=== PATIENT | female | born 1970 | race Caucasian/White ===

== ENCOUNTER 2022-04-16 10:15 | Emergency (ER) | payer BC, OTHER, SELFPAY ==
[2022-04-16 10:22] VITALS: BP 136/81; PULSE 69; RESP 20; TEMP 36.4; O2SAT 100
--- NOTE | 2022-04-16 10:34 | ED.FEMALEGU ---
HPI - Female Genitourinary General Chief complaint: Urogenital-Female Stated complaint: diahrrea achey cough Time Seen by Provider: 04/16/22 10:40 Source: patient and RN notes reviewed Mode of arrival: ambulatory Limitations: no limitations History of Present Illness HPI Narrative: 52-year-old female presents with concern for 1 week history of burning with urination, urinary incontinence, abdominal bloating, low backache, general achiness. Reports she developed diarrhea over the last 4 days with approximately 2 episodes of diarrhea per day without vomiting. She reports occasional cough. She denies fever. MD elicited complaint: UTI Related Data Home Medications Medication Instructions Recorded Confirmed Vitamin D 50,000 50,000 unit PO WEEKLY 11/27/19 04/16/22 escitalopram oxalate [Lexapro] 10 mg PO DAILY 11/27/19 04/16/22 levothyroxine 25 mcg PO DAILY 11/27/19 04/16/22 Allergies Allergy/AdvReac Type Severity Reaction Status Date / Time No Known Allergies Allergy Verified 04/16/22 10:39 Review of Systems Review of Systems: CONSTITUTIONAL: Denies malaise, chills, sweats, or fever. CARDIOVASCULAR: Denies chest pain, palpitations, or edema. RESPIRATORY: Reports occasional cough, occasional exertional dyspnea. GASTROINTESTINAL: Denies abdominal pain, nausea, vomiting. Reports abdominal bloating and diarrhea GENITOURINARY: Reports dysuria, frequency, urgency, suprapubic pressure, flank pain, dark-colored urine SKIN: Denies rash or itching. MUSCULOSKELETAL: Reports bilateral low back pain and myalgia. All systems reviewed & are unremarkable except as noted in HPI and below PMFSH Past Medical History Medical History (Updated 04/16/22 @ 10:51 by Suyapa Lizama NP) Arthritis Fibromyalgia No pertinent family history Surgical History Surgical History H/O section Hx of cholecystectomy Hx of hysterectomy Social History Social History Smoking status: Former smoker Comments At time of signature, agree with nursing past medical, surgical, social and family history. There is no relevant family history pertinent to the presenting complaint Exam Narrative: GENERAL: Nontoxic-appearing and in no acute distress. HEAD: Normocephalic. EYES: PERRLA, conjunctivae clear. NECK: Supple. No lymphadenopathy CHEST: Clear to auscultation. No respiratory distress. HEART: Regular rate and rhythm. ABDOMEN: Soft, mild lower abdomen tenderness upon, nondistended, normal active bowel sounds, no palpable or pulsatile masses, no guarding. Bilateral CVA tenderness SKIN: Warm, dry, no rash. NEURO: Alert and oriented x3. PSYCH: Normal mood and affect Course Course Emergency Course: Patient is aware of diagnosis, understands and agrees to treatment plan. Anticipatory guidance given. Patient agrees to follow-up as directed and is aware of reasons to seek care at the emergency department. Portions of this record may have been created with voice recognition software Level of Care: Express Care Visit Vital Signs Vital signs: Vital Signs Temperature 97.6 F 04/16/22 10:22 Pulse Rate 69 04/16/22 10:22 Respiratory Rate 20 04/16/22 10:22 Blood Pressure 136/81 04/16/22 10:22 Pulse Oximetry 100 04/16/22 10:22 Temperature 97.6 F 04/16/22 10:22 Pulse Rate 69 04/16/22 10:22 Respiratory Rate 20 04/16/22 10:22 Blood Pressure 136/81 04/16/22 10:22 Pulse Oximetry 100 04/16/22 10:22 Reviewed. MDM - Female Genitourinary MDM Narrative Medical decision making narrative: Exam findings and UA show no acute concerns or changes; patient is non-toxic appearing and is in no distress. Patient is appropriate for outpatient treatment and follow-up. Differential Diagnosis Differential diagnosis: Likely urinary tract infection and cystitis Critical Care Time Critical Care Time Critical Care Time:
== END 2022-04-16 11:00 | disposition home or self-care (01) ==
PROVIDERS: Emergency Provider Nurse Practitioner; PCP Internal Medicine
DX: N39.0 Urinary tract infection, site not specified (principal); M19.90 Unspecified osteoarthritis, unspecified site; M79.7 Fibromyalgia
CPT/HCPCS: 81003; 87086; 87088; 99213; G0463